=== PATIENT | male | born 1970 | race Two or more races ===

== ENCOUNTER 2022-05-10 19:30 | Emergency (ER) | payer OTHER ==
[2022-05-10] MEDS ORDERED: Sodium Chloride 0.9% 10 ML Syringe FLUSH ONE (20:26)
[2022-05-10] MEDS ORDERED: Iopamidol 612 MG/ML 50 ML SDV IVPUSH ONE (20:26)
[2022-05-10] MEDS ORDERED: Iopamidol 612 MG/ML 100 ML Bottle IVPUSH ONE (20:26)
[2022-05-10] MEDS ORDERED: Lidocaine 1% 10 ML MDV INJECT ONE (20:27)
[2022-05-10] MEDS ORDERED: Lactated Ringers 1,000 ML IV SCH (20:30)
[2022-05-10] MEDS ORDERED: Diphtheria,Pertussis(Acell),Tetanus Vaccine 0.5 ML Syringe IM ONE (21:53)
[2022-05-10] MEDS ORDERED: Morphine 2 MG/ML SYRINGE IVPUSH ONE (23:31)
[2022-05-10] MEDS ORDERED: Ketorolac 15 MG/ML SDV IVPUSH ONE (23:33)
== END 2022-05-11 00:42 | disposition home or self-care (01) ==
LOC: JD.ED 19:30
DX: S42.111A Displaced fracture of body of scapula, right shoulder, initial encounter for closed fracture (principal); S02.31XA Fracture of orbital floor, right side, initial encounter for closed fracture; S05.11XA Contusion of eyeball and orbital tissues, right eye, initial encounter; Z23 Encounter for immunization; V59.59XA Passenger in pick-up truck or van injured in collision with other motor vehicles in traffic accident, initial encounter; Y92.410 Unspecified street and highway as the place of occurrence of the external cause
CPT/HCPCS: 12011; 36415; 70450; 70486; 71260; 72125; 73030; 73610; 74177; 80053; 85025; 90471; 90715; 96361; 96374; 99284; J1885; J3490; J7120; Q9967